=== PATIENT | female | born 1995 | race Caucasian/White ===

== ENCOUNTER 2022-04-07 11:55 | Outpatient (REF) | payer OTHER, MEDICAID, SELFPAY ==
[2022-04-07 12:41] LABS: Influenza A PCR NEGATIVE (Negative); Influenza B PCR NEGATIVE (Negative); Resp Syncy Virus RNA Qual PCR NEGATIVE (Negative); SARS COV2 PCR INHOUSE NEGATIVE (Negative)
== END 2022-04-07 11:56 | disposition home or self-care (01) ==
LOC: HO.LNP 11:55
PROVIDERS: Visit Provider Physician Assistant
DX: J02.8 Acute pharyngitis due to other specified organisms (principal); Z20.822 Contact with and (suspected) exposure to COVID-19
CPT/HCPCS: 0241U

== ENCOUNTER 2023-03-21 08:06 | Outpatient (AMB) | payer OTHER, SELFPAY ==
--- NOTE | 2023-03-21 08:09 | A.OFFVIS_ITS ---
Intake Vital Signs 03/21/23 08:10 Height 5 ft 9 in Weight 213 lb BMI 31.5 BP 114/78 Blood Pressure Location Lt brachial Position Sitting Pulse 86 Pulse Source Pulse Oximeter Temp 98.3 F Temp Source Oral Pulse Oximetry (%) 97 Oxygen Delivery Method Room Air Intake Visit Reasons: EST/coughX2 month /back pain (lobby) Allergies amoxicillin [AMOXICILLIN] Allergy (Intermediate, Verified 03/21/23 08:12) UNKNOWN Do you need a note to return to daycare/school/sports/work: No HPI HPI Comments History of Present Illness Details The patient presents to urgent care for evaluation of a cough that started about a year ago. She states it has gotten worse in the past month. It is causing her some left-sided chest pain associated with the cough. No shortness of breath no nausea vomiting fever chills. No postnasal drip. She has been using Flonase nasal spray for quite a while without any relief of the cough. [facility] Social History (Updated 03/21/23 @ 08:13 by Francheska Freeman MA) Household Members: Family Housing: House Alcohol intake: current Alcohol intake frequency: a few times a week Patient Tobacco Use Status: Never used Tobacco Use of substances other than those prescribed or required for medical reasons: No Review of Systems Const Denies increased appetite Card Denies radiating jaw, neck or arm pain and Denies dyspnea Resp Denies hemoptysis and Denies dyspnea Physical Exam Vital Signs: Last Vital Signs Temp 98.3 F 03/21/23 08:10 Pulse 86 03/21/23 08:10 BP 114/78 03/21/23 08:10 Pulse Ox 97 03/21/23 08:10 Oxygen Delivery Method Room Air 03/21/23 08:10 BMI result Body Mass Index 31.5 Const General: healthy appearing and no acute distress Chest Chest palpation & inspection: normal inspection of the chest Resp Effort & Inspection: normal respiratory effort and able to speak in complete sentences Auscultation: clear to auscultation bilaterally Assessment & Plan Assessment & Plan (1) Cough: Code(s): R05.9 - Cough, unspecified Plan The patient with a chronic cough nonproductive no signs of infection likely allergic. She was advised to discontinue Flonase nasal spray and try Claritin for daily use for the next 3 weeks and see if there is any relief and recommend follow-up to PCP. Patient agreeable with this plan. Otherwise well-appearing. Recommend ibuprofen for chest related discomfort secondary to coughing. Hopefully this will resolve with resolution of cough. Coding Level of Care Code Est Pt Level 3 (35229) Diagnoses Cough R05.9
[2023-03-21 08:10] VITALS: BP 114/78; PULSE 86; TEMP 36.8; O2SAT 97; BMI 31.5
== END 2023-03-21 08:55 | disposition home or self-care (01) ==
PROVIDERS: PCP Internal Medicine; Visit Provider Emergency Medicine
DX: R05.9 Cough, unspecified (principal)
CPT/HCPCS: 99213

== ENCOUNTER 2023-10-14 13:08 | Outpatient (REF) | payer OTHER, SELFPAY ==
[2023-10-14 13:21] LABS: MANUAL DIFF FLAG NO
[2023-10-14 13:39] LABS: Basophils Absolute Auto 0.1 X10*3/uL (0.0-0.2); Basophils Percent Auto 0.9 % (0-2); Eosinophils Absolute Auto 0.4 X10*3/uL (0.0-0.4); Hemoglobin 13.6 g/dl (12.0-16.0); Imm Gran Abs Auto 0.03 X10*3/uL (0.00-0.03); Imm Gran Pct Auto 0.4 % (0.0-0.4); Lymphocytes Absolute Auto 2.2 X10*3/uL (1.2-4.9); Lymphocytes Percent Auto 27.1 % (20-40); Mean Corpuscular HGB Conc 33.2 g/dl (31.0-35.0); Mean Corpuscular Volume 87.4 fL (80.0-98.0); Mean Platelet Volume 9.5 fL (9.4-12.3); Monocytes Absolute Auto 0.7 X10*3/uL (0.1-1.2); Monocytes Percent Auto 8.6 % (2-11); Neutrophils Absolute Auto 4.7 x10*3/uL (2.0-8.3); Platelet Count 402 X10*3/uL (160-400); Red Blood Count 4.69 X10*6/uL (4.20-5.50); Red Cell Distribution Width 13.7 % (11.0-16.0); White Blood Count 8.1 X10*3/uL (4.8-10.8)
[2023-10-14 14:25] LABS: Alanine Aminotransferase 31 U/L (0-31); Albumin Level 4.3 g/dL (3.5-5.0); Alkaline Phosphatase 93 U/L (39-117); Anion Gap 16 (12-20); Aspartate Amino Transferase 26 U/L (5-31); Bilirubin Total 0.2 mg/dL (0.0-1.0); Blood Urea Nitrogen 16 mg/dL (9-16); Calcium 9.4 mg/dL (8.4-10.2); Carbon Dioxide 21 mmol/L (22-29); Chloride 107 mmol/L (96-108); Cholesterol 186 mg/dL (<200); Estimated Glomerular Filt Rate > 60; Glucose Random 94 mg/dL (60-115); HDL Cholesterol 58 mg/dL (>40); LDL Cholesterol Calculated 103 mg/dL (<100); Potassium 4.1 mmol/L (3.3-5.1); Sodium 140 mmol/L (135-145); Total Protein 7.9 g/dL (6.5-8.0); Triglycerides 127 mg/dL (<150)
[2023-10-14 14:44] LABS: Free T4 (Free Thyroxine) 0.76 ng/dL (0.71-1.85); Thyroid Stimulating Hormone 1.79 uIU/mL (0.32-4.0)
== END 2023-10-14 13:09 | disposition home or self-care (01) ==
LOC: HO.LAB 13:08
PROVIDERS: PCP Internal Medicine; Visit Provider Internal Medicine
DX: L63.0 Alopecia (capitis) totalis (principal); F32.A Depression, unspecified; E66.9 Obesity, unspecified
CPT/HCPCS: 36415; 80053; 80061; 84439; 84443; 85025

== ENCOUNTER 2024-01-29 11:16 | Outpatient (AMB) | payer OTHER, SELFPAY ==
--- NOTE | 2024-01-29 11:42 | AM.OFFWIN_ITS ---
Intake Vital Signs 3 01/29/24 11:43 Height 5 ft 9 in Weight 227 lb 6 oz BMI 33.6 BP 142/94 H Blood Pressure Location Rt brachial Position Sitting Pulse 94 Pulse Source Pulse Oximeter Pulse Oximetry (%) 98 Oxygen Delivery Method Room Air Intake Visit Reasons: EP LT foot pain Intake Note: Pt presents to the office today for c/o left foot pain that started yesterday morning after her daughter fell on her left foot and bent upward. Patient Tobacco Use Status: Never used Tobacco Allergies amoxicillin [AMOXICILLIN] Allergy (Intermediate, Verified 01/29/24 11:44) UNKNOWN HPI EP LT foot pain 2 HPI0 Details Patient is 28-year-old female came in today after having a foot injury left side yesterday Patient says that her daughter accidentally jumped over her foot and now it hurts to walk On examination she has ecchymosis dorsal aspect of left foot She is able to move her toes and sensations are intact Pulse is intact I am ordering x-ray of her foot She is to elevate and apply ice Note given to be off work for next 3 days Further management after the x-ray report [facility] Social History Household Members: Family Housing: House Alcohol intake: current Alcohol intake frequency: a few times a week Patient Tobacco Use Status: Never used Tobacco Review of Systems Const All systems reviewed & are unremarkable except as noted in HPI and below Physical Exam Vital Signs: Last Vital Signs Pulse 94 01/29/24 11:43 BP 142/94 H 01/29/24 11:43 Pulse Ox 98 01/29/24 11:43 Oxygen Delivery Method Room Air 01/29/24 11:43 BMI result Body Mass Index 33.6 Const General: no acute distress Orientation/consciousness: patient oriented x3 Eyes General: appearance normal, both eyes and all related structures Resp Effort & Inspection: normal respiratory effort and able to speak in complete sentences Auscultation: clear to auscultation bilaterally Neuro General: patient oriented x3 Extrem Ankle/foot/toe images: 2 1. Ecchymosis and tenderness sensory motor intact, vascular intact Psych Mental Status: mental status grossly normal Assessment & Plan Assessment & Plan (1) Foot injury: Code(s): S99.929A - Unspecified injury of unspecified foot, initial encounter Qualifiers: Encounter type: initial encounter Laterality: left Qualified Code(s): S99.922A - Unspecified injury of left foot, initial encounter Plan Patient is 28-year-old female came in today after having a foot injury left side yesterday Patient says that her daughter accidentally jumped over her foot and now it hurts to walk On examination she has ecchymosis dorsal aspect of left foot She is able to move her toes and sensations are intact Pulse is intact I am ordering x-ray of her foot She is to elevate and apply ice Note given to be off work for next 3 days Further management after the x-ray report Orders: Orders 2 XR foot LT 2V Today S99.929A - Unspecified injury of unspecified foot, initial encounter Coding Level of Care Code Est Pt Level 3 (72636) Diagnoses Injury of left foot, initial encounter S99.922A Encounter type: initial encounter Laterality: left
[2024-01-29 11:43] VITALS: BP 142/94; PULSE 94; O2SAT 98; BMI 33.6
== END 2024-01-29 11:53 | disposition home or self-care (01) ==
PROVIDERS: PCP Internal Medicine; Visit Provider Internal Medicine
DX: S99.922A Unspecified injury of left foot, initial encounter (principal)
CPT/HCPCS: 99213

== ENCOUNTER 2024-01-29 11:52 | Outpatient (REF) | payer OTHER, SELFPAY ==
--- NOTE | ~2024-01-29 | XR_ITS ---
EXAMINATION: XR FOOT, LEFT CLINICAL INFORMATION: Left foot pain. COMPARISON: None available. TECHNIQUE: AP, lateral, and oblique views of the left foot. FINDINGS: The bones and soft tissues are normal. No fracture. Alignment is anatomic. Joint spaces are maintained. XR/XR foot LT min 3V IMPRESSION: Unremarkable examination. Electronically signed by: Lucho Waddell MD 02/13/2024 08:18 PM EDT RP
== END 2024-01-29 11:53 | disposition home or self-care (01) ==
LOC: HO.HMGCX 11:52
PROVIDERS: PCP Internal Medicine; Visit Provider Internal Medicine
DX: S99.922D Unspecified injury of left foot, subsequent encounter (principal)
CPT/HCPCS: 73630